=== PATIENT | male | born 1945 | race African-American/Black ===

== ENCOUNTER 2017-02-13 16:10 | Inpatient (IN) | payer OTHER, MEDICARE ==
[~2017-02-13] VITALS: Ht 177.8 cm; Wt 85.4 kg
[2017-02-13] MEDS ORDERED: ONDANSETRON HCL 4 MG/2 ML VIAL ONE (16:14)
[2017-02-13] MEDS ORDERED: MORPHINE SULFATE 8 MG/ML INJ ONE (16:14)
[2017-02-13 16:15] VITALS: O2SAT 100
[2017-02-13] MEDS ORDERED: PROPOFOL 200 MG/20 ML AMP ONE (16:17)
[2017-02-13] MEDS ORDERED: ceFAZolin 2 GM PREMIX 50 ML ONE (16:19)
[2017-02-13 16:30] VITALS: O2SAT 100
[2017-02-13 16:37] LABS: I-STAT POTASSIUM 4.2 MMOL/L (3.5-4.9)
[2017-02-13 16:38] LABS: AUTOMATED NEUTROPHIL # 7.4 TH/MM3 (1.8-7.7); BASOPHIL # 0.1 TH/MM3 (0-0.2); EOSINOPHIL # 0.1 TH/MM3 (0-0.4); EOSINOPHIL % 0.5 % (0.0-4.0); HEMATOCRIT 38.6 % (39.0-51.0); HEMO FLAGS DIFF FINAL; LYMPH % 18.1 % (9.0-44.0); LYMPHOCYTE # 1.8 TH/MM3 (1.0-4.8); MEAN CELL VOLUME 83.5 FL (80.0-100.0); MEAN CORPUSCULAR HEMOGLOBIN 29.8 PG (27.0-34.0); MEAN CORPUSCULAR HGB CONC 35.7 % (32.0-36.0); MONO % 4.9 % (0.0-8.0); NEUT % 75.5 % (16.0-70.0); PLATELET COUNT 142 TH/MM3 (150-450); RED BLOOD COUNT 4.62 MIL/MM3 (4.50-5.90); WHITE BLOOD COUNT 9.8 TH/MM3 (4.0-11.0)
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
[2017-02-13 16:49] LABS: APTT (PATIENT) 22.9 SEC (24.3-30.1); PROTHROMBIN TIME - PATIENT 10.5 SEC (9.8-11.6)
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
[2017-02-13] MEDS ORDERED: ACETAMINOPHEN/HYDROcodone 325 MG/5 MG TAB PO PRN (17:00)
[2017-02-13] MEDS ORDERED: ENALAPRILAT 1.25 MG/ML VIAL IV PRN (17:00)
[2017-02-13] MEDS ORDERED: ONDANSETRON HCL 4 MG/2 ML VIAL IV PRN (17:00)
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
[2017-02-13 17:05] VITALS: BP 199/99; PULSE 89; RESP 20; TEMP 98.3; O2SAT 100
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
[2017-02-13] MEDS: SODIUM CHLOR 0.9% 1000 ML INJ 1,000 ML IV SCH (17:35)
[2017-02-13] MEDS: PANTOPRAZOLE SODIUM 40 MG VIAL IVP SCH (17:35)
[2017-02-13] MEDS: ACETAMINOPHEN/HYDROcodone 325 MG/5 MG TAB PO PRN ×2 (17:37→22:44)
[2017-02-13] MEDS ORDERED: SODI325T PO (17:44)
[2017-02-13] MEDS ORDERED: AMLO5TAB2 PO (17:44)
[2017-02-13] MEDS ORDERED: GLIP5TAB8 PO (17:44)
[2017-02-13 18:09] VITALS: BP 196/93; PULSE 97; RESP 20; O2SAT 99
[2017-02-13] MEDS ORDERED: DEXTROSE 50% IN WATER 50 ML SYRINGE ONE (18:13)
[2017-02-13] MEDS ORDERED: DEXTROSE 50% IN WATER 50 ML VIAL(D50) IV PRN (18:15)
[2017-02-13] MEDS ORDERED: GLUCAGON 1 MG/ML VIAL OTHER PRN ×2 (18:15→18:30)
[2017-02-13] MEDS ORDERED: DEXTROSE 50% IN WATER 50 ML VIAL(D50) IV PUSH PRN (18:30)
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
[2017-02-13] MEDS: HYDROmorphone HCL PF 1 MG/ML VIAL IVP PRN (19:00)
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
[2017-02-13 20:00] VITALS: BP 147/83; PULSE 95; RESP 16; TEMP 98.1; O2SAT 100
[2017-02-13] MEDS: diphenhydrAMINE HCL 50 MG CAP PO PRN (20:26)
[2017-02-13] MEDS: INSULIN NovoLIN REGULAR SUPPLEMENTAL SCALE SQ SCH (21:00)
[2017-02-13 22:00] VITALS: PULSE 93
[2017-02-14] VITALS (11 sets, daily range): BP systolic 121–150; BP diastolic 67–81; PULSE 72–115; RESP 14–24; TEMP 97.6–99.7; O2SAT 97–100
[2017-02-14] MEDS: SODIUM CHLOR 0.9% 1000 ML INJ 1,000 ML IV SCH ×3 (04:10→22:53)
[2017-02-14] MEDS: ACETAMINOPHEN/HYDROcodone 325 MG/5 MG TAB PO PRN (04:27)
[2017-02-14 04:51] LABS: AUTOMATED NEUTROPHIL # 5.1 TH/MM3 (1.8-7.7); BASOPHIL # 0.1 TH/MM3 (0-0.2); BASOPHIL % 1.3 % (0.0-2.0); EOSINOPHIL # 0.1 TH/MM3 (0-0.4); EOSINOPHIL % 1.1 % (0.0-4.0); HEMATOCRIT 33.2 % (39.0-51.0); HEMO FLAGS DIFF FINAL; LYMPH % 28.1 % (9.0-44.0); LYMPHOCYTE # 2.3 TH/MM3 (1.0-4.8); MEAN CELL VOLUME 83.7 FL (80.0-100.0); MEAN CORPUSCULAR HEMOGLOBIN 29.2 PG (27.0-34.0); MEAN CORPUSCULAR HGB CONC 34.9 % (32.0-36.0); MONO % 7.9 % (0.0-8.0); NEUT % 61.6 % (16.0-70.0); PLATELET COUNT 157 TH/MM3 (150-450); RED BLOOD COUNT 3.97 MIL/MM3 (4.50-5.90); RED CELL DISTRIBUTION WIDTH 14.1 % (11.6-17.2); WHITE BLOOD COUNT 8.2 TH/MM3 (4.0-11.0)
[2017-02-14 05:09] LABS: ALT (GPT) 31 U/L (12-78); ANION GAP 9 MEQ/L (5-15); AST (GOT) 40 U/L (15-37); BICARBONATE 21.6 MEQ/L (21.0-32.0); BLOOD UREA NITROGEN 35 MG/DL (7-18); CHLORIDE 110 MEQ/L (98-107); GLOMERULAR FILTRATION RATE 29 ML/MIN (>89); POTASSIUM 4.6 MEQ/L (3.5-5.1); SODIUM (NA) 141 MEQ/L (136-145)
[2017-02-14 05:11] LABS: ALKALINE PHOSPHATASE 53 U/L (45-117); TOTAL BILIRUBIN ADULT 0.6 MG/DL (0.2-1.0)
[2017-02-14] MEDS: INSULIN NovoLIN REGULAR SUPPLEMENTAL SCALE SQ SCH ×4 (07:00→20:44)
[2017-02-14] MEDS: PANTOPRAZOLE SODIUM 40 MG VIAL IVP SCH (08:23)
[2017-02-14] MEDS: POLYETHYLENE GLYCOL 17 GM PKG PO SCH (08:23)
[2017-02-14] MEDS: DOCUSATE SODIUM 50 MG/SENNA 8.6 MG TAB PO SCH ×2 (08:23→20:44)
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
[2017-02-14] MEDS: SODIUM BICARBONATE 325 MG TAB PO SCH (18:08)
[2017-02-14] MEDS: HEPARIN SODIUM - SQ 10,000 UNITS/ML VIAL SQ SCH (20:44)
[2017-02-15] MEDS: diphenhydrAMINE HCL 50 MG CAP PO PRN (01:13)
[2017-02-15] MEDS: SODIUM CHLOR 0.9% 1000 ML INJ 1,000 ML IV SCH ×2 (01:17→17:20)
[2017-02-15] MEDS: SODIUM CHLORIDE 0.9% FLUSH 10 ML FLUSH IV FLUSH PRN ×2 (01:17→03:44)
[2017-02-15] MEDS: HYDROmorphone HCL PF 1 MG/ML VIAL IVP PRN (03:42)
[2017-02-15 04:48] VITALS: BP 133/79; PULSE 111; RESP 20; TEMP 99.7; O2SAT 97
[2017-02-15] MEDS: INSULIN NovoLIN REGULAR SUPPLEMENTAL SCALE SQ SCH ×4 (06:35→20:19)
--- NOTE | 2017-02-15 06:41 | PD.ORT.PN ---
Subjective Subjective Remarks s/p right acetabulum fx doing well. pain controlled. states some soreness but overall feeling ok. Objective Vitals Vital Signs Date Time Temp Pulse Resp B/P Pulse Ox O2 Delivery O2 Flow Rate FiO2 02/15/17 04:48 99.7 111 20 133/79 97 02/14/17 20:00 113 02/14/17 20:00 97.8 113 14 149/81 98 02/14/17 19:00 98 Room Air 02/14/17 18:38 18 02/14/17 18:00 115 02/14/17 16:00 96 02/14/17 16:00 98.7 96 14 150/76 98 02/14/17 14:00 90 02/14/17 12:00 98.4 101 24 141/78 98 02/14/17 12:00 101 02/14/17 10:00 86 02/14/17 08:00 97.9 72 19 130/67 99 02/14/17 08:00 72 02/14/17 07:00 96 I/O 02/14/17 02/14/17 02/14/17 02/15/17 02/15/17 02/15/17 06:59 14:59 22:59 06:59 14:59 22:59 Intake Total 174 ml 1272 ml 816 ml Output Total 350 ml 750 ml 700 ml 900 ml Balance -176 ml 522 ml 116 ml -900 ml Intake Oral 720 ml 240 ml IV Total 174 ml 552 ml 576 ml Output Urine Total 350 ml 750 ml 700 ml 900 ml Result Diagram: 02/14/17 0423 02/14/17 0423 Objective Remarks RLE: +CKS. NVI with good dorsiflexion. neg adebayo. Assessment & Plan Assessment and Plan 1) Right Acetabulum fx -patient still would like to proceed with nonoperative treatment -NWB RLE -CKS at all times -will likely need SNF placement -ortho cleared for DC to SNF once out of bed safely 2) Right Shoulder pain -xrays negative -WBAT. no restrictions Terrance Lu Feb 15, 2017 06:41
[2017-02-15] MEDS ORDERED: WHEEMIS3 (06:43)
[2017-02-15] MEDS ORDERED: WALKER/ADULT/FO1 MIS (06:43)
[2017-02-15] MEDS ORDERED: HYDR-3580 PO (06:43)
[2017-02-15] MEDS ORDERED: XARE10TA PO (06:43)
[2017-02-15 07:55] VITALS: BP 134/74; PULSE 106; RESP 18; TEMP 99.4; O2SAT 97
[2017-02-15 08:08] LABS: AUTOMATED NEUTROPHIL # 6.7 TH/MM3 (1.8-7.7); BASOPHIL # 0.1 TH/MM3 (0-0.2); BASOPHIL % 0.9 % (0.0-2.0); EOSINOPHIL % 0.4 % (0.0-4.0); HEMATOCRIT 29.8 % (39.0-51.0); HEMO FLAGS DIFF FINAL; LYMPH % 18.7 % (9.0-44.0); LYMPHOCYTE # 1.7 TH/MM3 (1.0-4.8); MEAN CELL VOLUME 84.1 FL (80.0-100.0); MEAN CORPUSCULAR HGB CONC 35.7 % (32.0-36.0); MONO % 7.6 % (0.0-8.0); NEUT % 72.4 % (16.0-70.0); PLATELET COUNT 137 TH/MM3 (150-450); RED BLOOD COUNT 3.55 MIL/MM3 (4.50-5.90); WHITE BLOOD COUNT 9.3 TH/MM3 (4.0-11.0)
[2017-02-15 08:21] LABS: ANION GAP 10 MEQ/L (5-15); AST (GOT) 17 U/L (15-37); BICARBONATE 20.5 MEQ/L (21.0-32.0); BLOOD UREA NITROGEN 35 MG/DL (7-18); CHLORIDE 109 MEQ/L (98-107); GLOMERULAR FILTRATION RATE 26 ML/MIN (>89); POTASSIUM 4.8 MEQ/L (3.5-5.1); SODIUM (NA) 139 MEQ/L (136-145)
[2017-02-15 08:24] LABS: ALKALINE PHOSPHATASE 46 U/L (45-117); ALT (GPT) 21 U/L (12-78); TOTAL BILIRUBIN ADULT 0.5 MG/DL (0.2-1.0)
[2017-02-15] MEDS: DOCUSATE SODIUM 50 MG/SENNA 8.6 MG TAB PO SCH ×2 (08:55→20:18)
[2017-02-15] MEDS: SODIUM BICARBONATE 325 MG TAB PO SCH ×2 (08:55→17:14)
[2017-02-15] MEDS: HEPARIN SODIUM - SQ 10,000 UNITS/ML VIAL SQ SCH ×2 (08:58→20:18)
[2017-02-15] MEDS: PANTOPRAZOLE SODIUM 40 MG VIAL IVP SCH (08:58)
[2017-02-15] MEDS: POLYETHYLENE GLYCOL 17 GM PKG PO SCH (08:58)
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
[2017-02-15 12:03] VITALS: BP 142/82; PULSE 105; RESP 18; TEMP 98.5; O2SAT 100
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
[2017-02-15 15:33] VITALS: BP 169/84; PULSE 123; RESP 18; TEMP 99.7; O2SAT 100
[2017-02-15] MEDS: GLIMEPIRIDE 1 MG TAB PO SCH (16:08)
[2017-02-15 20:00] VITALS: BP 164/77; PULSE 110; RESP 18; TEMP 99; O2SAT 98
[2017-02-16] VITALS: BP 165/85; PULSE 104; RESP 20; TEMP 99.1; O2SAT 99
[2017-02-16 04:00] VITALS: BP 127/78; PULSE 104; RESP 20; TEMP 99; O2SAT 98
[2017-02-16] MEDS: SODIUM CHLOR 0.9% 1000 ML INJ 1,000 ML IV SCH ×2 (04:53→11:05)
[2017-02-16] MEDS: GLIMEPIRIDE 1 MG TAB PO SCH (05:17)
[2017-02-16] MEDS: INSULIN NovoLIN REGULAR SUPPLEMENTAL SCALE SQ SCH ×3 (05:18→16:00)
[2017-02-16 08:19] VITALS: BP 141/77; PULSE 96; RESP 20; TEMP 99.7; O2SAT 100
[2017-02-16] MEDS: POLYETHYLENE GLYCOL 17 GM PKG PO SCH (08:58)
[2017-02-16] MEDS: DOCUSATE SODIUM 50 MG/SENNA 8.6 MG TAB PO SCH (08:58)
[2017-02-16] MEDS: HEPARIN SODIUM - SQ 10,000 UNITS/ML VIAL SQ SCH (08:58)
[2017-02-16] MEDS: SODIUM BICARBONATE 325 MG TAB PO SCH (08:58)
[2017-02-16] MEDS: PANTOPRAZOLE SODIUM 40 MG VIAL IVP SCH (08:58)
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
[2017-02-16 12:03] VITALS: BP 168/85; PULSE 108; RESP 20; TEMP 98.5; O2SAT 98
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
[2017-02-16] MEDS ORDERED: AMAR2TAB PO (12:27)
[2017-02-16] MEDS ORDERED: SENN1TAB PO (12:27)
[2017-02-16] MEDS ORDERED: HYDR-3516 PO (12:27)
[2017-02-16] MEDS ORDERED: HEPA10003 SQ (12:27)
[2017-02-16] MEDS ORDERED: POLY17S PO (12:27)
[2017-02-16] MEDS: ACETAMINOPHEN/HYDROcodone 325 MG/5 MG TAB PO PRN (12:35)
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
[2017-02-16 15:21] VITALS: BP 140/81; PULSE 114; RESP 19; TEMP 98; O2SAT 98
[2017-02-16] MEDS ORDERED: GLIMEPIRIDE 2 MG TAB PO SCH (16:00)
== END 2017-02-16 17:40 | DRG 536 ==
LOC: NEPI 16:10 → NEDA 17:05 → EDBD 17:05 → N03A 18:24 → N05B 02-15 00:47
PROVIDERS: ADMIT Surgery; ATTEND Surgery
PROC: 0SS9XZZ Reposition Right Hip Joint, External Approach (ICD-10-PCS; principal; 2017-02-13)
DX: S32.441A Displaced fracture of posterior column [ilioischial] of right acetabulum, initial encounter for closed fracture (principal); S12.101A Unspecified nondisplaced fracture of second cervical vertebra, initial encounter for closed fracture; N18.4 Chronic kidney disease, stage 4 (severe); S73.014A Posterior dislocation of right hip, initial encounter; E11.22 Type 2 diabetes mellitus with diabetic chronic kidney disease; S06.0X9A Concussion with loss of consciousness of unspecified duration, initial encounter; S12.041A Nondisplaced lateral mass fracture of first cervical vertebra, initial encounter for closed fracture; M25.511 Pain in right shoulder; R40.2410 Glasgow coma scale score 13-15, unspecified time; I12.9 Hypertensive chronic kidney disease with stage 1 through stage 4 chronic kidney disease, or unspecified chronic kidney disease; E11.649 Type 2 diabetes mellitus with hypoglycemia without coma; V47.0XXA Car driver injured in collision with fixed or stationary object in nontraffic accident, initial encounter; Z79.84 Long term (current) use of oral hypoglycemic drugs; Z85.51 Personal history of malignant neoplasm of bladder
CPT/HCPCS: 70450; 71010; 71250; 72125; 72170; 73030; 73100; 73501; 73560; 74176; 80053; 82435; 82565; 82947; 82948; 84132; 84295; 84520; 85025; 85610; 85730; 86850; 86900; 86901; C9113; J0690; J1170; J1644; J2270; J2405; J7030; L0150; L0172; L1830; Q0163

== ENCOUNTER 2017-02-23 21:40 | Inpatient (IN) | payer OTHER, MEDICARE ==
[~2017-02-23 21:40] MED LIST: AMAR2TAB PO; AMLO10 PO; AMLO5TAB2 PO; CYCL1TAB29 PO; HEPA10003 SQ; HYDR-3516 PO; HYDR-3580 PO; ONDA4TAB7 PO; OXYC-392 PO; PANT40TA3 PO; POLY17S PO; SENN1TAB PO; SODI325T PO; XARE10TA PO
[2017-02-23 22:15] VITALS: PULSE 101
[2017-02-23] MEDS ORDERED: NALOXONE HCL 0.4 MG/ML AMP IV PRN (22:15)
[2017-02-23] MEDS ORDERED: ACETAMINOPHEN 325 MG TAB PO PRN (22:15)
[2017-02-23] MEDS ORDERED: ONDANSETRON HCL 4 MG/2 ML VIAL IVP PRN (22:15)
[2017-02-23] MEDS ORDERED: SENNOSIDES 8.6 MG TAB PO PRN (22:15)
[2017-02-23] MEDS ORDERED: SODIUM CHLORIDE 0.9% FLUSH 10 ML FLUSH IV FLUSH PRN (22:15)
[2017-02-23] MEDS ORDERED: ACETAMINOPHEN/HYDROcodone 325 MG/7.5 MG TAB PO PRN (22:30)
[2017-02-23] MEDS ORDERED: GLUCAGON 1 MG/ML VIAL OTHER PRN (22:30)
[2017-02-23] MEDS ORDERED: DEXTROSE 50% IN WATER 50 ML VIAL(D50) IV PRN (22:30)
[2017-02-23] MEDS: HYDROmorphone HCL PF 1 MG/ML VIAL IV PUSH PRN (23:11)
[2017-02-24] VITALS (8 sets, daily range): BP systolic 114–170; BP diastolic 64–88; PULSE 68–122; RESP 16–19; TEMP 97.8–101.3; O2SAT 96–100
[2017-02-24] MEDS ORDERED: SODIUM CHLORID 0.9% 500 ML IV PRN (00:45)
[2017-02-24] MEDS ORDERED: LACTATED RINGER'S 1000 ML IV PRN (00:45)
[2017-02-24] MEDS ORDERED: CHLORHEXIDINE GLUCONATE 2 % 1 PACK (2 CLOTHS) TOPICAL PRN (00:45)
[2017-02-24] MEDS ORDERED: POVIDONE IODINE 5% (ANTISEPSIS KIT) 4 APPLICATIONS EACH NARE PRN (00:45)
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
[2017-02-24] MEDS: DEXT 5%-NACL 0.9% 1000 ML INJ 1,000 ML IV SCH ×2 (06:00→17:55)
[2017-02-24] MEDS: INSULIN ASPART SUPPLEMENTAL SCALE SQ SCH ×4 (07:00→22:52)
[2017-02-24 07:01] LABS: ALT (GPT) 29 U/L (12-78); ANION GAP 11 MEQ/L (5-15); AST (GOT) 17 U/L (15-37); BICARBONATE 21.7 MEQ/L (21.0-32.0); BLOOD UREA NITROGEN 53 MG/DL (7-18); CHLORIDE 104 MEQ/L (98-107); GLOMERULAR FILTRATION RATE 25 ML/MIN (>89); POTASSIUM 4.5 MEQ/L (3.5-5.1); SODIUM (NA) 137 MEQ/L (136-145)
[2017-02-24 07:03] LABS: ALKALINE PHOSPHATASE 76 U/L (45-117); TOTAL BILIRUBIN ADULT 0.5 MG/DL (0.2-1.0)
[2017-02-24 07:12] LABS: AUTOMATED NEUTROPHIL # 14.7 TH/MM3 (1.8-7.7); BASOPHIL # 0.1 TH/MM3 (0-0.2); BASOPHIL % 0.6 % (0.0-2.0); EOSINOPHIL # 0.1 TH/MM3 (0-0.4); EOSINOPHIL % 0.8 % (0.0-4.0); HEMO FLAGS DIFF FINAL; LYMPH % 6.1 % (9.0-44.0); MEAN CELL VOLUME 81.8 FL (80.0-100.0); MEAN CORPUSCULAR HEMOGLOBIN 29.3 PG (27.0-34.0); MEAN CORPUSCULAR HGB CONC 35.8 % (32.0-36.0); MONO % 4.8 % (0.0-8.0); NEUT % 87.7 % (16.0-70.0); PLATELET COUNT 322 TH/MM3 (150-450); RED BLOOD COUNT 3.54 MIL/MM3 (4.50-5.90); RED CELL DISTRIBUTION WIDTH 13.7 % (11.6-17.2); WHITE BLOOD COUNT 16.7 TH/MM3 (4.0-11.0)
[2017-02-24 07:29] LABS: APTT (PATIENT) 25.7 SEC (24.3-30.1); PROTHROMBIN TIME - PATIENT 10.9 SEC (9.8-11.6)
[2017-02-24] MEDS: SODIUM BICARBONATE 325 MG TAB PO SCH ×2 (08:11→18:02)
[2017-02-24] MEDS: SODIUM CHLORIDE 0.9% FLUSH 10 ML FLUSH IV FLUSH SCH ×3 (08:11→22:54)
[2017-02-24] MEDS: PANTOPRAZOLE SOD 40 MG DELAYED RELEASE TAB PO SCH (08:11)
[2017-02-24] MEDS: HYDROmorphone HCL PF 1 MG/ML VIAL IV PUSH PRN (08:15)
[2017-02-24] MEDS: LACTOBACILLUS ACIDOPHILUS TAB PO SCH ×3 (09:24→18:02)
[2017-02-24] MEDS: cefTRIAXone INJ 1,000 MG in SODIUM CHLORIDE 0.9% INJ 100 ML IV SCH (09:25)
[2017-02-24] MEDS ORDERED: MAGNESIUM HYDROXIDE SUSP 30 ML CUP PO PRN ×2 (11:00→14:15)
[2017-02-24] MEDS ORDERED: PROPOFOL 200 MG/20 ML AMP IV ONE (12:00)
[2017-02-24] MEDS ORDERED: ONDANSETRON HCL 4 MG/2 ML VIAL IV PUSH ONE (12:00)
[2017-02-24] MEDS ORDERED: NEOSTIGMINE 3 MG/3 ML SYR IV ONE (12:00)
[2017-02-24] MEDS ORDERED: LACTULOSE SYRUP 20 GM/30 ML CUP PO PRN (14:15)
[2017-02-24] MEDS ORDERED: Post-op Orders (for Pharmacy) MISC XX ONE (14:15)
[2017-02-24] MEDS ORDERED: SODIUM CHLORIDE 0.9% FLUSH 10 ML FLUSH IV FLUSH PRN (14:15)
[2017-02-24] MEDS ORDERED: SENNOSIDES 8.6 MG TAB PO PRN (14:15)
[2017-02-24] MEDS ORDERED: ZOLPIDEM TARTRATE 5 MG TAB PO PRN (14:15)
[2017-02-24] MEDS ORDERED: PROMETHAZINE HCL 25 MG TAB PO PRN (14:15)
[2017-02-24] MEDS ORDERED: oxyCODONE/ACETAMINOPHEN 5 MG/325 MG TAB PO PRN (14:15)
[2017-02-24] MEDS ORDERED: BISACODYL 10 MG SUPP RECTAL PRN (14:15)
[2017-02-24] MEDS ORDERED: ACETAMINOPHEN 325 MG TAB PO PRN (14:15)
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
[2017-02-24] MEDS ORDERED: fentaNYL CITRATE 250 MCG/5 ML AMP ONE (15:03)
[2017-02-24] MEDS ORDERED: MIDAZOLAM HCL 2 MG/2 ML VIAL ONE (15:03)
--- NOTE | 2017-02-24 15:25 | RADRPT ---
EXAM DATE/TIME: 02/24/2017 14:35 [facility] COMPARISON: No previous studies available for comparison. INDICATIONS : Closed reduction right hip. MEDICAL HISTORY : None. SURGICAL HISTORY : None. ENCOUNTER: Subsequent ACUITY: 1 day PAIN SCORE: Non-responsive. LOCATION: Right hip FINDINGS: There is evidence of acute displaced acetabular fracture on the right. Closed reduction has been per formed. CONCLUSION: Acute displaced acetabular fracture on the right. Closed reduction has been performed. Sang Dent MD on February 24, 2017 at 15:06 Board Certified Radiologist. This report was verified electronically.
[2017-02-24] MEDS: KETOROLAC TROMETHAMINE 30 MG/ML (IVP) VIAL IVP SCH ×2 (15:30→22:54)
[2017-02-24] MEDS ORDERED: DO NOT ADM ANY ANTICOAGULANT DRUGS PRN (16:00)
--- NOTE | 2017-02-24 16:19 | EKG ---
Date Performed: 02/23/2017 Time Performed: 22:35:23 PTAGE: 71 years EKG: SINUS TACHYCARDIA NONSPECIFIC T-WAVE ABNORMALITY ABNORMAL RHYTHM ECG NO PREVIOUS TRACING DOCTOR: Demarco Alvarado Interpretating Date/Time 02/24/2017 16:18:20
--- NOTE | 2017-02-24 20:46 | RADRPT ---
EXAM DATE/TIME: 02/24/2017 19:49 [place] COMPARISON: CT ABDOMEN & PELVIS W/O CONTRAST, February 13, 2017, 16:40. PELVIS AP & JUDET VIEWS (3VWS), February 19 7, 9:47. HIP RIGHT (AP&LAT 2/3VWS) WO AP PELVIS, February 24, 2017, 14:35. INDICATIONS : Right hip pain. RADIATION DOSE: 63.04 CTDIvol (mGy) MEDICAL HISTORY : Carcinoma, bladder. Hypertension. Carcinoma, prostate.diabetes SURGICAL HISTORY : urostomy ENCOUNTER: Initial ACUITY: 1 day PAIN SCALE: 8/10 LOCATION: Right hip TECHNIQUE: Volumetric scanning of the hip was performed. Using automated exposure control and adjustment of the mA and/or kV according to patient size, radiation dose was kept as low as reasonably achievable to o btain optimal diagnostic quality images. DICOM format image data is available electronically for rev iew and comparison. FINDINGS: There is a comminuted fracture of the acetabulum with minimally fracture lines in the medial and supe rior acetabulum extending into the anterior column. There is a large displaced fragment arising from the lateral aspect of the posterior column which measures almost 3 cm in oblique dimension and is di splaced superior and lateral. There is a hairline fracture within the displaced fragment. The femor al head contours are smooth and the trabecular pattern of the femoral neck is intact. There is a que stionable hairline fracture in the anterior cortex of the mid neck only seen on 2 images (axial narro w [id number] images #36 and 37) the greater and lesser trochanter are intact. Comparison is made to trauma CT from 02/13/17. The degree of displacement of the large posterior fragment has increased. CONCLUSION: Increase in the amount of displacement of the large comminuted fragment arising from the lateral post erior column; separation now measures 2.5 cm (previously measured 1.1 cm). The other acetabular frac tures are stable. Questionable one cortex fracture of the anterior femoral neck. Dennis Wolf MD on February 24, 2017 at 20:30 Board Certified Radiologist. This report was verified electronically.
[2017-02-24] MEDS: DOCUSATE SODIUM 50 MG/SENNA 8.6 MG TAB PO SCH (22:54)
[2017-02-24] MEDS: DOCUSATE SODIUM 100 MG CAP PO SCH (22:54)
[2017-02-25] VITALS (11 sets, daily range): BP systolic 103–143; BP diastolic 56–71; PULSE 79–100; RESP 16–18; TEMP 97.2–98; O2SAT 96–100
[2017-02-25] MEDS: KETOROLAC TROMETHAMINE 30 MG/ML (IVP) VIAL IVP SCH ×4 (02:28→20:55)
[2017-02-25] MEDS ORDERED: ENOXAPARIN SODIUM 30 MG/0.3 ML SYRINGE SQ SCH (02:30)
[2017-02-25] MEDS: DEXT 5%-NACL 0.9% 1000 ML INJ 1,000 ML IV SCH ×2 (05:50→16:38)
[2017-02-25] MEDS: INSULIN ASPART SUPPLEMENTAL SCALE SQ SCH ×4 (06:48→21:07)
[2017-02-25] MEDS: SODIUM CHLORIDE 0.9% FLUSH 10 ML FLUSH IV FLUSH SCH ×3 (09:00→20:54)
[2017-02-25] MEDS: LACTOBACILLUS ACIDOPHILUS TAB PO SCH ×3 (09:23→16:38)
[2017-02-25] MEDS: DOCUSATE SODIUM 50 MG/SENNA 8.6 MG TAB PO SCH ×2 (09:23→20:55)
[2017-02-25] MEDS: SODIUM BICARBONATE 325 MG TAB PO SCH ×2 (09:23→16:38)
[2017-02-25] MEDS: PANTOPRAZOLE SOD 40 MG DELAYED RELEASE TAB PO SCH (09:23)
[2017-02-25] MEDS: DOCUSATE SODIUM 100 MG CAP PO SCH ×2 (09:23→20:55)
[2017-02-25] MEDS: cefTRIAXone INJ 1,000 MG in SODIUM CHLORIDE 0.9% INJ 100 ML IV SCH (09:25)
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
[2017-02-25 13:18] LABS: MEAN CELL VOLUME 82.2 FL (80.0-100.0); MEAN CORPUSCULAR HEMOGLOBIN 29.2 PG (27.0-34.0); MEAN CORPUSCULAR HGB CONC 35.6 % (32.0-36.0); PLATELET COUNT 321 TH/MM3 (150-450); RED BLOOD COUNT 3.16 MIL/MM3 (4.50-5.90); RED CELL DISTRIBUTION WIDTH 13.8 % (11.6-17.2); REVIEW FLAG FINAL; WHITE BLOOD COUNT 18.2 TH/MM3 (4.0-11.0)
[2017-02-25 13:35] LABS: BICARBONATE 21.4 MEQ/L (21.0-32.0); POTASSIUM 4.3 MEQ/L (3.5-5.1)
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
[2017-02-26] MEDS: KETOROLAC TROMETHAMINE 30 MG/ML (IVP) VIAL IVP SCH ×2 (01:38→09:19)
[2017-02-26] MEDS: ENOXAPARIN SODIUM 30 MG/0.3 ML SYRINGE SQ SCH (01:38)
[2017-02-26 03:50] VITALS: BP 123/64; PULSE 81; RESP 17; TEMP 96.5; O2SAT 99
[2017-02-26] MEDS: DEXT 5%-NACL 0.9% 1000 ML INJ 1,000 ML IV SCH ×2 (05:38→17:14)
[2017-02-26 06:28] LABS: HEMATOCRIT 25.4 % (39.0-51.0); MEAN CELL VOLUME 83.6 FL (80.0-100.0); MEAN CORPUSCULAR HEMOGLOBIN 28.9 PG (27.0-34.0); MEAN CORPUSCULAR HGB CONC 34.6 % (32.0-36.0); PLATELET COUNT 336 TH/MM3 (150-450); RED BLOOD COUNT 3.04 MIL/MM3 (4.50-5.90); REVIEW FLAG FINAL; WHITE BLOOD COUNT 13.9 TH/MM3 (4.0-11.0)
[2017-02-26] MEDS: INSULIN ASPART SUPPLEMENTAL SCALE SQ SCH ×4 (06:36→21:19)
[2017-02-26 06:44] LABS: BICARBONATE 21.3 MEQ/L (21.0-32.0); POTASSIUM 4.5 MEQ/L (3.5-5.1)
[2017-02-26 07:45] VITALS: BP 119/66; PULSE 73; RESP 18; TEMP 96.7; O2SAT 96
[2017-02-26] MEDS: DOCUSATE SODIUM 50 MG/SENNA 8.6 MG TAB PO SCH ×2 (09:14→21:00)
[2017-02-26] MEDS: LACTOBACILLUS ACIDOPHILUS TAB PO SCH ×3 (09:14→17:13)
[2017-02-26] MEDS: PANTOPRAZOLE SOD 40 MG DELAYED RELEASE TAB PO SCH (09:14)
[2017-02-26] MEDS: DOCUSATE SODIUM 100 MG CAP PO SCH ×2 (09:15→21:00)
[2017-02-26] MEDS: SODIUM CHLORIDE 0.9% FLUSH 10 ML FLUSH IV FLUSH SCH ×2 (09:15→21:00)
[2017-02-26] MEDS: SODIUM BICARBONATE 325 MG TAB PO SCH ×2 (09:15→17:13)
[2017-02-26] MEDS: cefTRIAXone INJ 1,000 MG in SODIUM CHLORIDE 0.9% INJ 100 ML IV SCH (09:16)
[2017-02-26 12:00] VITALS: BP 129/65; PULSE 75; RESP 18; TEMP 97.6; O2SAT 97
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
[2017-02-26 16:00] VITALS: BP 147/71; PULSE 77; RESP 18; TEMP 97.9; O2SAT 96
[2017-02-26 19:00] VITALS: BP 174/84; PULSE 95; RESP 16; TEMP 96.5; O2SAT 100
[2017-02-26 20:03] VITALS: PULSE 91
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
[2017-02-27] VITALS: BP 158/74; PULSE 91; RESP 17; TEMP 98.7; O2SAT 100
[2017-02-27] MEDS: ENOXAPARIN SODIUM 30 MG/0.3 ML SYRINGE SQ SCH (02:04)
[2017-02-27 04:00] VITALS: BP 165/82; PULSE 94; RESP 18; TEMP 98.8; O2SAT 98
[2017-02-27] MEDS: DEXT 5%-NACL 0.9% 1000 ML INJ 1,000 ML IV SCH ×2 (05:30→17:20)
[2017-02-27] MEDS: INSULIN ASPART SUPPLEMENTAL SCALE SQ SCH ×3 (05:52→16:49)
[2017-02-27 08:00] VITALS: BP 131/72; PULSE 90; PULSE 96; RESP 18; TEMP 98.4; O2SAT 98
[2017-02-27 08:03] LABS: HEMATOCRIT 26.7 % (39.0-51.0); MEAN CELL VOLUME 82.7 FL (80.0-100.0); MEAN CORPUSCULAR HEMOGLOBIN 28.6 PG (27.0-34.0); MEAN CORPUSCULAR HGB CONC 34.5 % (32.0-36.0); PLATELET COUNT 367 TH/MM3 (150-450); RED BLOOD COUNT 3.23 MIL/MM3 (4.50-5.90); RED CELL DISTRIBUTION WIDTH 13.7 % (11.6-17.2); REVIEW FLAG FINAL; WHITE BLOOD COUNT 10.6 TH/MM3 (4.0-11.0)
[2017-02-27 08:25] LABS: BICARBONATE 21.3 MEQ/L (21.0-32.0); POTASSIUM 4.5 MEQ/L (3.5-5.1)
[2017-02-27] MEDS: SODIUM CHLORIDE 0.9% FLUSH 10 ML FLUSH IV FLUSH SCH (09:47)
[2017-02-27] MEDS: cefTRIAXone INJ 1,000 MG in SODIUM CHLORIDE 0.9% INJ 100 ML IV SCH (09:48)
[2017-02-27] MEDS: LACTOBACILLUS ACIDOPHILUS TAB PO SCH ×3 (09:48→17:20)
[2017-02-27] MEDS: DOCUSATE SODIUM 100 MG CAP PO SCH (09:48)
[2017-02-27] MEDS: DOCUSATE SODIUM 50 MG/SENNA 8.6 MG TAB PO SCH (09:49)
[2017-02-27] MEDS: PANTOPRAZOLE SOD 40 MG DELAYED RELEASE TAB PO SCH (09:49)
[2017-02-27] MEDS: SODIUM BICARBONATE 325 MG TAB PO SCH ×2 (09:49→17:20)
[2017-02-27 10:00] VITALS: O2SAT 98
[2017-02-27 12:00] VITALS: BP 158/85; PULSE 81; RESP 18; TEMP 98.2; O2SAT 100
[2017-02-27 16:00] VITALS: BP 157/81; PULSE 84; RESP 18; TEMP 97.8; O2SAT 100
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
== END 2017-02-27 18:07 | disposition short-term general hospital (02) | DRG 537 ==
LOC: N06A 21:40
PROVIDERS: ADMIT Hospitalist; ATTEND Hospitalist
PROC: 2W6NX0Z Traction of Right Upper Leg using Traction Apparatus (ICD-10-PCS; 2017-02-24)
PROC: 0SS9XZZ Reposition Right Hip Joint, External Approach (ICD-10-PCS; principal; 2017-02-24 14:06)
DX: S73.004A Unspecified dislocation of right hip, initial encounter (principal); N18.4 Chronic kidney disease, stage 4 (severe); E11.22 Type 2 diabetes mellitus with diabetic chronic kidney disease; E11.649 Type 2 diabetes mellitus with hypoglycemia without coma; T38.3X5A Adverse effect of insulin and oral hypoglycemic [antidiabetic] drugs, initial encounter; S32.4 Fracture of acetabulum; I12.9 Hypertensive chronic kidney disease with stage 1 through stage 4 chronic kidney disease, or unspecified chronic kidney disease; S12.100D Unspecified displaced fracture of second cervical vertebra, subsequent encounter for fracture with routine healing; V49.9XXD Car occupant (driver) (passenger) injured in unspecified traffic accident, subsequent encounter; Z90.6 Acquired absence of other parts of urinary tract; Z85.46 Personal history of malignant neoplasm of prostate; Z85.51 Personal history of malignant neoplasm of bladder; Z93.6 Other artificial openings of urinary tract status; Z79.84 Long term (current) use of oral hypoglycemic drugs
CPT/HCPCS: 73502; 73700; 76000; 80048; 80053; 82948; 85025; 85027; 85610; 85730; 93005; 94150; J0696; J1170; J1650; J1815; J1885; J2250; J2405; J2710; J3010; J7042

== ENCOUNTER 2017-03-05 18:25 | Inpatient (IN) | payer OTHER, MEDICARE ==
[~2017-03-05 18:25] MED LIST changes: -AMLO5TAB2 PO; -HYDR-3516 PO; -HYDR-3580 PO; -XARE10TA PO
[2017-03-07] MEDS ORDERED: CYCLOBENZAPRINE HCL 10 MG TAB PO PRN (17:30)
[2017-03-07] MEDS ORDERED: GLUCAGON 1 MG/ML VIAL OTHER PRN (17:30)
[2017-03-07] MEDS ORDERED: DEXTROSE 50% IN WATER 50 ML VIAL(D50) IV PRN (17:30)
[2017-03-07] MEDS ORDERED: DOCUSATE SODIUM 100 MG CAP PO PRN (17:30)
[2017-03-07] MEDS: SODIUM BICARBONATE 325 MG TAB PO SCH (18:00)
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
[2017-03-07] MEDS ORDERED: cloNIDine HCL 0.1 MG TAB PO PRN (18:30)
[2017-03-07] MEDS ORDERED: PILL SPLITTER OTHER PRN (18:45)
[2017-03-07] MEDS: ACETAMINOPHEN 325 MG TAB PO PRN (19:02)
[2017-03-07 20:22] VITALS: BP 132/74; PULSE 100; RESP 20; TEMP 98.6; O2SAT 95
--- NOTE | 2017-03-07 20:22 | RADRPT ---
EXAM DATE/TIME: 03/07/2017 19:48 [place] COMPARISON: No previous studies available for comparison. INDICATIONS : Status post right acetabulum ORIF. MEDICAL HISTORY : None. SURGICAL HISTORY : None. ENCOUNTER: Initial ACUITY: 1 day PAIN SCORE: 8/10 LOCATION: Right Hip FINDINGS: View of the right hip and pelvis was obtained. There is plate and screw fixation of the right acetab ulum. Skin damian laterally. Numerous surgical clips within the pelvis. CONCLUSION: 1. Postoperative changes at the right acetabulum. No complications identified. Madhav Fernandez MD on March 07, 2017 at 20:20 Board Certified Radiologist. This report was verified electronically.
[2017-03-07] MEDS: INSULIN ASPART SUPPLEMENTAL SCALE SQ SCH (21:00)
[2017-03-07] MEDS: HEPARIN SODIUM - SQ 10,000 UNITS/ML VIAL SQ SCH (21:59)
[2017-03-07 23:39] VITALS: BP 127/71; PULSE 105; RESP 18; TEMP 97.6; O2SAT 99
[2017-03-08 05:11] VITALS: BP 134/67; PULSE 83; RESP 16; TEMP 98.7; O2SAT 97
[2017-03-08] MEDS: ACETAMINOPHEN 325 MG TAB PO PRN (06:25)
[2017-03-08] MEDS: INSULIN ASPART SUPPLEMENTAL SCALE SQ SCH ×4 (06:28→21:19)
[2017-03-08 08:00] VITALS: BP 114/63; PULSE 83; RESP 20; TEMP 99; O2SAT 98
[2017-03-08] MEDS: HEPARIN SODIUM - SQ 10,000 UNITS/ML VIAL SQ SCH ×3 (09:00→21:12)
[2017-03-08] MEDS: SODIUM BICARBONATE 325 MG TAB PO SCH ×2 (09:32→17:52)
[2017-03-08] MEDS: PANTOPRAZOLE SOD 40 MG DELAYED RELEASE TAB PO SCH (09:32)
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
[2017-03-08 12:00] VITALS: BP 135/70; PULSE 104; RESP 20; TEMP 98.3; O2SAT 99
[2017-03-08] MEDS ORDERED: OXYC-392 PO (12:36)
[2017-03-08 16:00] VITALS: BP 137/76; PULSE 118; RESP 20; TEMP 98.6; O2SAT 99
[2017-03-08 20:00] VITALS: BP 129/66; PULSE 105; RESP 20; TEMP 98.9; O2SAT 99
[2017-03-09 01:39] VITALS: BP 127/68; PULSE 99; RESP 16; TEMP 99.2; O2SAT 99
[2017-03-09 04:45] VITALS: BP 121/97; PULSE 93; RESP 16; TEMP 98.7; O2SAT 98
[2017-03-09] MEDS: INSULIN ASPART SUPPLEMENTAL SCALE SQ SCH ×3 (06:07→15:45)
[2017-03-09 08:25] VITALS: BP 118/66; PULSE 86; RESP 20; TEMP 98.7; O2SAT 99
[2017-03-09] MEDS: SODIUM BICARBONATE 325 MG TAB PO SCH ×2 (08:51→17:17)
[2017-03-09 08:52] LABS: AUTOMATED NEUTROPHIL # 6.9 TH/MM3 (1.8-7.7); BASOPHIL # 0.1 TH/MM3 (0-0.2); BASOPHIL % 1.2 % (0.0-2.0); EOSINOPHIL # 0.2 TH/MM3 (0-0.4); EOSINOPHIL % 2.4 % (0.0-4.0); HEMATOCRIT 24.6 % (39.0-51.0); MEAN CELL VOLUME 80.6 FL (80.0-100.0); MONO % 5.8 % (0.0-8.0); NEUT % 70.6 % (16.0-70.0); PLATELET COUNT 339 TH/MM3 (150-450); RED BLOOD COUNT 3.05 MIL/MM3 (4.50-5.90); RED CELL DISTRIBUTION WIDTH 14.4 % (11.6-17.2); WHITE BLOOD COUNT 9.8 TH/MM3 (4.0-11.0)
[2017-03-09] MEDS: PANTOPRAZOLE SOD 40 MG DELAYED RELEASE TAB PO SCH (08:52)
[2017-03-09] MEDS: HEPARIN SODIUM - SQ 10,000 UNITS/ML VIAL SQ SCH (08:52)
[2017-03-09 08:53] LABS: HEMO FLAGS DIFF FINAL
[2017-03-09 09:15] LABS: BICARBONATE 26.4 MEQ/L (21.0-32.0); POTASSIUM 3.9 MEQ/L (3.5-5.1)
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
[2017-03-09 12:19] VITALS: BP 132/69; PULSE 101; RESP 20; TEMP 99.1; O2SAT 100
[2017-03-09] MEDS ORDERED: NOVOLOGP2 SQ (12:43)
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
[2017-03-09 16:38] VITALS: BP 134/71; PULSE 86; RESP 20; TEMP 98.5; O2SAT 100
== END 2017-03-09 18:57 | DRG 560 ==
LOC: N05B 03-07 14:58 → OBSVTOIN 03-07 17:29
PROVIDERS: ADMIT Internal Medicine; ATTEND Internal Medicine
DX: S32.441D Displaced fracture of posterior column [ilioischial] of right acetabulum, subsequent encounter for fracture with routine healing (principal); N18.4 Chronic kidney disease, stage 4 (severe); I12.9 Hypertensive chronic kidney disease with stage 1 through stage 4 chronic kidney disease, or unspecified chronic kidney disease; K59.00 Constipation, unspecified; Z85.46 Personal history of malignant neoplasm of prostate; Z85.51 Personal history of malignant neoplasm of bladder; Z93.2 Ileostomy status; E11.22 Type 2 diabetes mellitus with diabetic chronic kidney disease; Z79.4 Long term (current) use of insulin; Z83.3 Family history of diabetes mellitus; S12.100D Unspecified displaced fracture of second cervical vertebra, subsequent encounter for fracture with routine healing
CPT/HCPCS: 73501; 80048; 82948; 85025; J1644; J1815